=== PATIENT | female | born 1985 | race Caucasian/White ===

== ENCOUNTER 2017-07-09 10:58 | Emergency (ER) | payer BC, OTHER ==
[2017-07-09] MEDS ORDERED: ZOFRAN ODT 4 MG PO ONE (11:14)
[2017-07-09] MEDS ORDERED: ZOFRAN ODT 4 MG ONE (11:18)
--- NOTE | 2017-07-09 11:18 | ERPHSYRPT ---
- History of Present Illness Time Seen by Provider: 07/09/17 11:11 Source: patient Exam Limitations: no limitations Patient Subjective Stated Complaint: pt co migraine headache for 4 days now with vomiting for last 48 hours,unable to keep pain meds down Triage Nursing Assessment: pt alert in no distress , walked in ,resp easy, skin w/d. 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 No fevers. Patient states that she has pain medications at home but is unable to keep these down. Past medical history includes migraines, anxiety, hellp syndrome Past surgical history includes , tubal ligation, tonsillectomy, adenoidectomy Timing/Duration: today Quality: aching Head Pain Location: frontal Severity of Pain-Max: moderate Severity of Pain-Current: moderate Recent Head Trauma: occasional headaches Modifying Factors: Improves With: exposure to light. Worsens With: immobilization, medication, movement, rest, noise, position Associated Symptoms: nausea/vomiting, sensitive to light, No confusion, No dizziness, No fatigue, No facial pain, No fever/chills, No flushing, No light- headedness, No loss of consciousness, No nasal congestion, No nasal drainage, No neck pain, No numbness in legs/feet, No rash, No sweating, No scotoma, No seizures, No sinus infection, No speech problems, No stiff neck, No trouble walking, No vision changes, No visual disturbance, No weakness Previous symptoms: same symptoms as today Allergies/Adverse Reactions: promethazine HCl [From Phenergan] Allergy (Intermediate, Verified 07/09/17 11:09 ) Itching patient itching, flushed, red splotches all over face and body Home Medications: No Home Meds 02/04/12 [History] Hx Tetanus, Diphtheria Vaccination/Date Given: Yes Hx Influenza Vaccination/Date Given: No Hx Pneumococcal Vaccination/Date Given: No Immunizations Up to Date: Yes - Review of Systems Constitutional: No Fever, No Chills Eyes: Photophobia, No Discharge, No Eye Pain, No Eye Redness Ears, Nose, & Throat: No Symptoms, No Ear Pain, No Ear Discharge, No Hearing Changes, No Tinnitus, No Nose Pain, No Nose Congestion, No Nose Discharge, No Sinus Drainage Respiratory: No Cough, No Dyspnea Cardiac: No Chest Pain, No Edema, No Syncope Abdominal/Gastrointestinal: Nausea, Vomiting, No Abdominal Pain, No Diarrhea Genitourinary Symptoms: No Dysuria Musculoskeletal: No Back Pain, No Neck Pain Skin: No Rash Neurological: Headache, No Dizziness, No Focal Weakness, No Gait Changes, No Irritability, No Lethargy, No Paralysis, No Parasthesia, No Seizure, No Sensory Changes, No Speech Changes, No Tics, No Tremors, No Vertigo Psychological: No Symptoms Endocrine: No Symptoms All Other Systems: Reviewed and Negative - Past Medical History Pertinent Past Medical History: Yes Neurological History: Migraines ENT History: No Pertinent History Cardiac History: No Pertinent History Respiratory History: No Pertinent History Endocrine Medical History: No Pertinent History Musculoskeletal History: No Pertinent History GI Medical History: No Pertinent History History: No Pertinent History Psycho-Social History: Anxiety Female Reproductive Disorders: Other Other Medical History: HELLP syndrome - Past Surgical History Past Surgical History: Yes Neuro Surgical History: No Pertinent History Cardiac: No Pertinent History Respiratory: No Pertinent History Gastrointestinal: No Pertinent History Genitourinary: No Pertinent History Musculoskeletal: No Pertinent History Female Surgical History: Section, Tubal Ligation Other Surgical History: tonsillectomy, adenoidectomy - Social History Smoking Status: Current every day smoker Exposure to second hand smoke: Yes Drug Use: none Patient Lives Alone: No - Female History Hx Last Menstrual Period: dec Hx Now: No - Nursing Vital Signs Nursing Vital Signs: Initial Vital Signs Temperature 97.3 F 07/09/17 11:05 Pulse Rate 85 07/09/17 11:05 Respiratory Rate 16 07/09/17 11:05 Blood Pressure 124/72 07/09/17 11:05 O2 Sat by Pulse Oximetry 96 07/09/17 11:05 Pain Scale Pain Intensity 8 - Physical Exam General Appearance: moderate distress, alert Eye Exam: PERRL/EOMI, eyes nml inspection, photophobia, other (fundi are unremarkable) Ears, Nose, Throat Exam: normal ENT inspection, TMs normal, pharynx normal, moist mucous membranes Neck Exam: normal inspection, supple, full range of motion, No meningismus Respiratory Exam: normal breath sounds, lungs clear Cardiovascular Exam: regular rate/rhythm, normal heart sounds Gastrointestinal/Abdominal Exam: soft, No tenderness, No distention Back Exam: normal inspection, normal range of motion Extremity Exam: normal inspection, normal range of motion Mental Status Exam: alert, oriented x 3, 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 Exam: normal speech, PERRL, No facial droop Coordination/Gait Exam: normal cerebellar function Motor/Sensory Exam: no motor deficit, no sensory deficit, no pronator drift, No pronator drift (R), No pronator drift (L), No sensory deficit, No weak motor strength RUE, No weak motor strength LUE, No weak motor strength RLE, No weak motor strength LLE DTR Exam: ankle (R): 2+, ankle (L): 2+ Skin Exam: normal color, warm, dry, No rash SpO2 Interpretation: normal (96%) SpO2: 96 Oxygen Delivery: Room Air Ordered Tests: Medication Summary Generic Name Dose Route Start Last Admin Trade Name Freq PRN Reason Stop Dose Admin Sodium Chloride 1,000 mls @ 999 mls/hr 07/09/17 11:35 07/09/17 11:45 Sodium Chloride 0.9% 1000 Ml IV 07/09/17 12:35 999 mls/hr .Q1H1M STA Administration Discontinued Medications Generic Name Dose Route Start Last Admin Trade Name Freq PRN Reason Stop Dose Admin Sodium Chloride Confirm 07/09/17 11:43 Sodium Chloride 0.9% 1000 Ml Administered 07/09/17 11:44 Dose 1,000 mls @ ud .ROUTE .STK-MED ONE Ondansetron HCl 4 mg 07/09/17 11:14 07/09/17 11:19 Zofran Odt 4 Mg PO 07/09/17 11:15 4 mg STAT ONE Administration Ondansetron HCl Confirm 07/09/17 11:18 Zofran Odt 4 Mg Administered 07/09/17 11:19 Dose 4 mg .ROUTE .STK-MED ONE - Progress Progress: improved Air Movement: fair Progress Note: 07/09/17 11:32 31-year-old white female states she has had a headache for 3 days patient with history of migraines patient states she cannot keep her pain meds down. Patient does not want pain medications at this time she states she just wants something to make it so she doesn't vomit. I have given the patient Zofran. 07/09/17 12:22 Patient states she is feeling better and wants to go home Does not want any pain medications here States she will take Aleve at home. Will write for Zofran. - Departure Time of Disposition: 12:22 Departure Disposition: Home Clinical Impression: Migraine Qualifiers: Migraine type: unspecified Status migrainosus presence: without status migrainosus Intractability: not intractable Qualified Code(s): G43.909 - Migraine, unspecified, not intractable, without status migrainosus Nausea and vomiting Qualifiers: Vomiting type: unspecified Vomiting Intractability: non-intractable Qualified Code(s): R11.2 - Nausea with vomiting, unspecified Condition: Fair Critical Care Time: No Referrals: ERIK LINDQUIST [Primary Care Provider] - Instructions: Headache Additional Instructions: Return home. Plenty of fluids clear fluids only 24-48 hours if nausea vomiting. Zofran 4 mg orally every 4-6 hours as needed for nausea and vomiting. OTC Aleve as needed for headache. Follow-up with your family doctor if symptoms recurrent. Return for acute distress or for severe symptoms. Prescriptions: Ondansetron [Zofran Odt] 4 mg PO Q4-6HPRN PRN #10 tab.rapdis PRN Reason: nausea and vomiting
[2017-07-09] MEDS ORDERED: Sodium Chloride 0.9% 1000 ML 1,000 ML IV STA (11:35)
[2017-07-09] MEDS ORDERED: Sodium Chloride 0.9% 1000 ML 1,000 ML ONE (11:43)
[2017-07-09 12:36] VITALS: BP 134/74; PULSE 74; O2SAT 98
== END 2017-07-09 12:38 | disposition home or self-care (01) ==
LOC: ED 10:58
DX: G43.909 Migraine, unspecified, not intractable, without status migrainosus (principal); R11.2 Nausea with vomiting, unspecified; R51 Headache
CPT/HCPCS: 36000; 96360; 99284; Q0162

== ENCOUNTER 2018-10-30 06:17 | Day surgery (SDC) | payer OTHER ==
[2012-07-23 09:13] VITALS: BP 112/68
[2018-10-30] MEDS ORDERED: DIPRIVAN 200 MG/20 ML IV ONE (06:18)
[2018-10-30] MEDS ORDERED: Ketamine HCl 50 MG/ML IJ ONE (06:18)
[2018-10-30] MEDS ORDERED: Lactated Ringers 1,000 ML IV SCH (06:30)
[2018-10-30] MEDS ORDERED: Lactated Ringers 1,000 ML IV ONE (07:36)
[2018-10-30 09:00] VITALS: O2SAT 99
[2018-10-30 09:28] VITALS: BP 127/59; PULSE 77
--- NOTE | 2018-10-30 09:46 | OP ---
SURGERY DATE/TIME: 10/30/2018 0725 PREOPERATIVE DIAGNOSIS: Rectal bleeding. History of colon polyps. POSTOPERATIVE DIAGNOSIS: Colitis. PROCEDURE: Colonoscopy with cold forceps biopsy. SURGEON: Dr. Scott. ANESTHESIA: MAC. Medications given by anesthesia department. HISTORY: The patient is a 32 year-old white female presenting now for colonoscopic evaluation. She reports she has been having intermittent rectal bleeding which she attributes to hemorrhoids. However on examination the patient had no evidence of hemorrhoids whatsoever internal or external. The patient was felt the need to have endoscopic evaluation. She did also have colon polyps removed ten years ago. The patient was described the risks of the procedure including the risk of perforation, phlebitis, untoward reaction to medication, bleeding and missed lesions. The patient verbalized her understanding and desired to have the procedure performed. DESCRIPTION OF PROCEDURE: The patient was given the medications by the anesthesia department. She had continuous pulse oximetry, ECG monitoring, intermittent blood pressure monitoring and tidal CO2 monitoring during the examination. She was placed in the left lateral decubitus position. A digital rectal examination was performed and revealed normal anal sphincter tone and no masses. There was no bleeding present. The flexible Olympus pediatric colonoscope was used to intubate the rectum. A view of the colon was developed sequentially to the cecum including approximately 20 cm into the terminal ileum. Upon insertion and withdrawal, including a retroflex view in the rectum, there appeared to be a loss of normal vascular markings in the sigmoid to descending colon. There were no erosions or ulcerations. However, no bleeding. Biopsies were obtained in the terminal ileum and from the segment of colon which appeared to be abnormal in regards to increase in spasm and the aforementioned absence of vascular markings. We performed retroflex view in the rectum again confirming the absence of hemorrhoids. The scope was removed from the patient who tolerated the procedure well and was sent back to OP recovery in good condition. The prep was noted to be good.
== END 2018-10-30 09:32 | disposition home or self-care (01) ==
LOC: SDC 06:17
PROVIDERS: ATTEND Family Medicine
DX: K52.9 Noninfective gastroenteritis and colitis, unspecified (principal); K62.5 Hemorrhage of anus and rectum; Z86.010 Personal history of colon polyps; R11.0 Nausea; H53.8 Other visual disturbances
CPT/HCPCS: 82962; 84703; 88305; J2704

== ENCOUNTER 2018-10-30 20:11 | Observation (INO) | payer OTHER ==
[2018-10-30] MEDS ORDERED: Sodium Chloride 0.9% 1000 ML 1,000 ML IV STA (20:47)
[2018-10-30] MEDS ORDERED: TORAdol 30 mg Injection IV ONE (20:48)
[2018-10-30] MEDS ORDERED: BENADRYL 50 MG/ML IV ONE (20:48)
[2018-10-30] MEDS ORDERED: Reglan 10 MG/2 ML IV ONE (20:49)
--- NOTE | 2018-10-30 20:55 | ERPHSYRPT ---
- History of Present Illness Time Seen by Provider: 10/30/18 20:37 Source: patient Exam Limitations: no limitations Patient Subjective Stated Complaint: vomiting Triage Nursing Assessment: Patient brought back to ER via w/c and transferred to bed with assist of 1. Patient states she had a colonoscopy this am by Dr. Scott at 0730. Patient states she has been sick since she got home. Patient states she has been dizzy, vomiting and having a headache 10/10. Patient not able to keep any fluids or food down. Patient states she has "blacked out" three times. Patient's abdomen soft and round with BS X 4. Physician History: Pt underwent colonoscopy this morning here at 07:30 AM. She started c/o blurred vision, headaches, vomiting few hours later, as soon as arrived home. She has vomited several times, and passed out x 3 for few seconds according to her father. She denies fever, chills, no focal weakness, slurred speech, visual loss ,abdominal or chest [pain, SOB, other complaints. Timing/Duration: hour(s) (10), intermittent Quality: sharpness, throbbing Head Pain Location: frontal, temporal (left) Severity of Pain-Max: severe Severity of Pain-Current: severe Recent Head Trauma: no recent headache/trauma, frequent headaches Modifying Factors: Improves With: exposure to light Associated Symptoms: dizziness, loss of consciousness, nausea/vomiting, sensitive to light Previous symptoms: same symptoms as today Home Medications: Divalproex Sodium [Depakote ER] 1,000 mg PO DAILY 10/25/18 [History] Ondansetron [Zofran Odt] 8 mg PO Q4-6HPRN PRN 10/25/18 [History] Sumatriptan [Imitrex] 5 mg NS DAILY PRN 10/25/18 [History] Tizanidine HCl 4 mg [Zanaflex 4 MG] 8 mg PO HS PRN 10/25/18 [History] Topiramate [Topamax] 100 mg PO DAILY 10/25/18 [History] Rizatriptan Benzoate [Maxalt] 10 mg PO Q6-8HPRN PRN 10/30/18 [History] Hx Tetanus, Diphtheria Vaccination/Date Given: Yes Hx Influenza Vaccination/Date Given: No Hx Pneumococcal Vaccination/Date Given: No - Review of Systems Constitutional: No Symptoms Eyes: Vision Changes Ears, Nose, & Throat: No Symptoms Respiratory: No Symptoms Cardiac: No Symptoms Abdominal/Gastrointestinal: Nausea, Vomiting, No Abdominal Pain, No Hematemesis Genitourinary Symptoms: No Symptoms Musculoskeletal: No Symptoms Skin: No Symptoms Neurological: Dizziness, Headache, Vertigo All Other Systems: Reviewed and Negative - Past Medical History Pertinent Past Medical History: Yes Neurological History: Migraines, Seizures ENT History: No Pertinent History Cardiac History: No Pertinent History Respiratory History: Other Endocrine Medical History: Hypoglycemia Musculoskeletal History: Other GI Medical History: GERD, Hemorrhoids, Ulcer History: No Pertinent History Psycho-Social History: Anxiety Female Reproductive Disorders: Other Other Medical History: spots in her lungs were found during CT scan. September 2017 and will re scan in one year. Has not. - Past Surgical History Past Surgical History: Yes Neuro Surgical History: No Pertinent History Cardiac: No Pertinent History Respiratory: No Pertinent History Gastrointestinal: No Pertinent History Genitourinary: No Pertinent History Musculoskeletal: No Pertinent History Female Surgical History: Section, Tubal Ligation Other Surgical History: tonsillectomy, adenoidectomy deviated septum repair, tubes in ears - Social History Smoking Status: Former smoker How long have you smoked: 22 years Exposure to second hand smoke: No Drug Use: none Patient Lives Alone: No - Female History Hx Last Menstrual Period: 6 days ago Hx Now: No - Nursing Vital Signs Nursing Vital Signs: Initial Vital Signs Temperature 98.5 F 10/30/18 20:16 Pulse Rate 88 10/30/18 20:16 Respiratory Rate 18 10/30/18 20:16 Blood Pressure 122/62 10/30/18 20:16 O2 Sat by Pulse Oximetry 96 10/30/18 20:16 Pain Scale Pain Intensity 3 - Physical Exam General Appearance: no apparent distress Eye Exam: PERRL/EOMI, eyes nml inspection Ears, Nose, Throat Exam: normal ENT inspection, TMs normal, pharynx normal, moist mucous membranes Neck Exam: normal inspection, non-tender, supple, No carotid bruit, No JVD Respiratory Exam: normal breath sounds, lungs clear, airway intact, No chest tenderness Cardiovascular Exam: regular rate/rhythm, normal heart sounds, normal peripheral pulses, capillary refill <2 sec, No murmur Gastrointestinal/Abdominal Exam: soft, normal bowel sounds, No tenderness, No distention, No mass, No guarding, No ecchymosis, No pulsatile mass, No rebound, No hernia, No organomegaly Back Exam: normal inspection, No CVA tenderness, No vertebral tenderness Extremity Exam: normal inspection Mental Status Exam: alert, oriented x 3, 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 Exam: normal speech, PERRL, No facial droop Coordination/Gait Exam: normal cerebellar function Motor/Sensory Exam: no motor deficit, no sensory deficit DTR Exam: bicep (R): 2+, bicep (L): 2+, knee (R): 2+, knee (L): 2+, ankle (R): 2 +, ankle (L): 2+ Skin Exam: normal color, warm, dry, No rash Lymphatic Exam: No adenopathy SpO2 Interpretation: normal SpO2: 96 O2 Delivery: Room Air - Course Nursing assessment & vital signs reviewed: Yes EKG Interpreted by Me: RATE (81/min), NORMAL AXIS, NORMAL INTERVALS, NORMAL QRS , NORMAL ST-T - CT Exams Head CT Interpretation: Negative, Tele-radiologist Report Ordered Tests: Active Orders 24 hr Category Date Time Status EKG-ER Only STAT Care 10/30/18 20:49 Active IV Insertion STAT Care 10/30/18 20:47 Active HEAD WITHOUT CONTRAST [CT] Stat Exams 10/30/18 20:47 Taken CBC W DIFF Stat Lab 10/30/18 20:47 Completed CMP Stat Lab 10/30/18 20:47 Completed Erythrocyte Sedimentation Rate Stat Lab 10/30/18 20:48 Completed MAGNESIUM Stat Lab 10/30/18 20:47 Completed PROTIME WITH INR Stat Lab 10/30/18 20:48 Completed TROPONIN Q3H Lab 10/30/18 21:00 Completed TROPONIN Q3H Lab 10/31/18 00:00 Ordered TROPONIN Q3H Lab 10/31/18 03:00 Ordered TROPONIN Q3H Lab 10/31/18 06:00 Ordered TROPONIN Q3H Lab 10/31/18 09:00 Ordered UA W/RFX UR CULTURE Stat Lab 10/30/18 20:47 Completed Urine Triage Profile Stat Lab 10/30/18 20:47 Ordered Medication Summary Discontinued Medications Generic Name Dose Route Start Last Admin Trade Name Freq PRN Reason Stop Dose Admin Diphenhydramine HCl 25 mg 10/30/18 20:48 10/30/18 21:16 Benadryl 50 Mg/Ml IV 10/30/18 20:49 25 mg STAT ONE Administration Diphenhydramine HCl Confirm 10/30/18 21:11 Benadryl 50 Mg/Ml Administered 10/30/18 21:12 Dose 50 mg .ROUTE .STK-MED ONE Fentanyl Citrate 75 mcg 10/30/18 22:58 10/30/18 23:03 Sublimaze 100 Mcg/2 Ml IV 10/30/18 22:59 75 mcg STAT ONE Administration Fentanyl Citrate Confirm 10/30/18 23:00 Sublimaze 100 Mcg/2 Ml Administered 10/30/18 23:01 Dose 100 mcg .ROUTE .STK-MED ONE Sodium Chloride 1,000 mls @ 999 mls/hr 10/30/18 20:47 10/30/18 22:17 Sodium Chloride 0.9% 1000 Ml IV 10/30/18 21:47 Infused .Q1H1M STA Infusion Sodium Chloride Confirm 10/30/18 21:12 Sodium Chloride 0.9% 1000 Ml Administered 10/30/18 21:13 Dose 1,000 mls @ ud .ROUTE .STK-MED ONE Ketorolac Tromethamine 30 mg 10/30/18 20:48 10/30/18 21:17 Toradol 30 Mg Injection IV 10/30/18 20:49 30 mg STAT ONE Administration Ketorolac Tromethamine Confirm 10/30/18 21:11 Toradol 30 Mg Injection Administered 10/30/18 21:12 Dose 30 mg .ROUTE .STK-MED ONE Meclizine HCl 25 mg 10/30/18 23:55 10/31/18 00:04 Antivert 25 Mg PO 10/30/18 23:56 25 mg STAT ONE Administration Meclizine HCl Confirm 10/31/18 00:03 Antivert 25 Mg Administered 10/31/18 00:04 Dose 25 mg .ROUTE .STK-MED ONE Metoclopramide HCl 10 mg 10/30/18 20:49 10/30/18 21:17 Reglan 10 Mg/2 Ml IV 10/30/18 20:50 10 mg STAT ONE Administration Metoclopramide HCl Confirm 10/30/18 21:12 Reglan 10 Mg/2 Ml Administered 10/30/18 21:13 Dose 10 mg .ROUTE .STK-MED ONE Lab/Rad Data: Laboratory Result Diagrams 10/30/18 20:47 10/30/18 20:47 Laboratory Results 10/30/18 10/30/18 10/30/18 Range/Units 21:00 20:48 20:48 WBC (4.0-10.5) K/mm3 RBC (4.1-5.4) M/mm3 Hgb (12.0-16.0) gm/dl Hct (35-47) % MCV (78-100) fl MCH (26-32) pg MCHC (32-36) g/dl RDW (11.5-14.0) % Plt Count (150-450) K/mm3 MPV (6-9.5) fl Gran % (36.0-66.0) % Eos # (Auto) (0-0.5) Absolute Lymphs (auto) (1.0-4.6) Absolute Monos (auto) (0.0-1.3) Lymphocytes % (24.0-44.0) % Monocytes % (0.0-12.0) % Eosinophils % (0.00-5.0) % Basophils % (0.0-0.4) % Absolute Granulocytes (1.4-6.9) Basophils # (0-0.4) ESR 11 (0-20) mm/hr PT 12.7 H (9.95-12.35) SECONDS INR 1.09 (0.8-3.0) Sodium (137-145) mmol/L Potassium (3.5-5.1) mmol/L Chloride (98-107) mmol/L Carbon Dioxide (22-30) mmol/L Anion Gap (5-15) MEQ/L BUN (7-17) mg/dL Creatinine (0.52-1.04) mg/dL Estimated GFR ML/MIN Glucose (74-106) mg/dL Calcium (8.4-10.2) mg/dL Magnesium (1.6-2.3) mg/dL Total Bilirubin (0.2-1.3) mg/dL AST (14-36) U/L ALT (0-35) U/L Alkaline Phosphatase (38-126) U/L Troponin I < 0.012 (0.000-0.034) ng/mL Serum Total Protein (6.3-8.2) g/dL Albumin (3.5-5.0) g/dL Urine Color (YELLOW) Urine Appearance (CLEAR) Urine pH (5-6) Ur Specific [place] (1.005-1.025) Urine Protein (Negative) Urine Ketones (NEGATIVE) Urine Blood (0-5) Jesus/ul Urine Nitrite (NEGATIVE) Urine Bilirubin (NEGATIVE) Urine Urobilinogen (0-1) mg/dL Ur Leukocyte Esterase (NEGATIVE) Urine WBC (Auto) (0-5) /HPF Urine RBC (Auto) (0-2) /HPF U Epithel Cells (Auto) (FEW) /HPF Urine Bacteria (Auto) (NEGATIVE) /HPF Urine Mucus (Auto) (NEGATIVE) /HPF Urine Culture Reflexed (NO) Urine Glucose (NEGATIVE) mg/dL 10/30/18 10/30/18 10/30/18 Range/Units 20:47 20:47 20:47 WBC 7.4 (4.0-10.5) K/mm3 RBC 4.26 (4.1-5.4) M/mm3 Hgb 12.3 (12.0-16.0) gm/dl Hct 37.8 (35-47) % MCV 88.7 (78-100) fl MCH 28.9 (26-32) pg MCHC 32.5 (32-36) g/dl RDW 12.4 (11.5-14.0) % Plt Count 238 (150-450) K/mm3 MPV 10.8 H (6-9.5) fl Gran % 82.8 H (36.0-66.0) % Eos # (Auto) 0.02 (0-0.5) Absolute Lymphs (auto) 0.94 L (1.0-4.6) Absolute Monos (auto) 0.30 (0.0-1.3) Lymphocytes % 12.7 L (24.0-44.0) % Monocytes % 4.1 (0.0-12.0) % Eosinophils % 0.3 (0.00-5.0) % Basophils % 0.1 (0.0-0.4) % Absolute Granulocytes 6.11 (1.4-6.9) Basophils # 0.01 (0-0.4) ESR (0-20) mm/hr PT (9.95-12.35) SECONDS INR (0.8-3.0) Sodium 140 (137-145) mmol/L Potassium 4.0 (3.5-5.1) mmol/L Chloride 106 (98-107) mmol/L Carbon Dioxide 25 (22-30) mmol/L Anion Gap 13.0 (5-15) MEQ/L BUN 8 (7-17) mg/dL Creatinine 0.57 (0.52-1.04) mg/dL Estimated GFR > 60.0 ML/MIN Glucose 108 H (74-106) mg/dL Calcium 9.3 (8.4-10.2) mg/dL Magnesium 2.0 (1.6-2.3) mg/dL Total Bilirubin 0.90 (0.2-1.3) mg/dL AST 29 (14-36) U/L ALT 34 (0-35) U/L Alkaline Phosphatase 77 (38-126) U/L Troponin I (0.000-0.034) ng/mL Serum Total Protein 7.4 (6.3-8.2) g/dL Albumin 4.3 (3.5-5.0) g/dL Urine Color YELLOW (YELLOW) Urine Appearance CLOUDY (CLEAR) Urine pH 8.0 (5-6) Ur Specific [place] 1.013 (1.005-1.025) Urine Protein NEGATIVE (Negative) Urine Ketones SMALL (NEGATIVE) Urine Blood NEGATIVE (0-5) Jesus/ul Urine Nitrite NEGATIVE (NEGATIVE) Urine Bilirubin NEGATIVE (NEGATIVE) Urine Urobilinogen NEGATIVE (0-1) mg/dL Ur Leukocyte Esterase TRACE (NEGATIVE) Urine WBC (Auto) 3-5 (0-5) /HPF Urine RBC (Auto) 3-5 (0-2) /HPF U Epithel Cells (Auto) RARE (FEW) /HPF Urine Bacteria (Auto) RARE (NEGATIVE) /HPF Urine Mucus (Auto) SLIGHT (NEGATIVE) /HPF Urine Culture Reflexed NO (NO) Urine Glucose NEGATIVE (NEGATIVE) mg/dL - Progress Progress: improved Air Movement: good Progress Note: 10/31/18 00:38 Pt was given NS bolus, Toradol, Benadryl, Reglan and Fentanyl iv, improved, she is alert, oriented x4, afebrile. called Dr Scott, discussed our results with him and this patient's current condition, he agreed to admit her for observation. Patient and her father informed and they agreed. Blood Culture(s) Obtained: No Antibiotics given: No Discussed with : Tyler Will see patient in: hospital (observation) Counseled pt/family regarding: lab results, diagnosis, rad results - Departure Departure Disposition: Observation Clinical Impression: Syncope and collapse Headache Qualifiers: Headache type: unspecified Headache chronicity pattern: acute headache Intractability: not intractable Qualified Code(s): R51 - Headache Migraine Qualifiers: Migraine type: with aura Status migrainosus presence: without status migrainosus Intractability: not intractable Qualified Code(s): G43.109 - Migraine with aura, not intractable, without status migrainosus Condition: Stable Critical Care Time: No Referrals: ERIK SCOTT [Primary Care Provider] -
[2018-10-30] MEDS ORDERED: BENADRYL 50 MG/ML ONE (21:11)
[2018-10-30] MEDS ORDERED: TORAdol 30 mg Injection ONE (21:11)
[2018-10-30] MEDS ORDERED: Reglan 10 MG/2 ML ONE (21:12)
[2018-10-30] MEDS ORDERED: Sodium Chloride 0.9% 1000 ML 1,000 ML ONE (21:12)
[2018-10-30 21:53] LABS: BASOPHIL % 0.1 % (0.0-0.4); Basophil (Absolute #) 0.01 (0-0.4); Eosinophil % 0.3 % (0.00-5.0); Eosinophil (Absolute #) 0.02 (0-0.5); Granulocyte Absolute (ANC) 6.11 (1.4-6.9); Granulocytes % 82.8 % (36.0-66.0); Hematocrit 37.8 % (35-47); Hemoglobin 12.3 gm/dl (12.0-16.0); Lymphocyte (Absolute #) 0.94 (1.0-4.6); Lymphocytes % 12.7 % (24.0-44.0); Mean Cell Volume 88.7 fl (78-100); Mean Corpuscular Hemoglobin 28.9 pg (26-32); Mean Corpuscular Hgb Concent. 32.5 g/dl (32-36); Mean Platelet Volume 10.8 fl (6-9.5); Monocytes % 4.1 % (0.0-12.0); Platelet Count 238 K/mm3 (150-450); Red Blood Count 4.26 M/mm3 (4.1-5.4); Red Cell Distribution Width 12.4 % (11.5-14.0); White Blood Count 7.4 K/mm3 (4.0-10.5)
[2018-10-30 22:08] LABS: INR 1.09 (0.8-3.0); PROTIME 12.7 SECONDS (9.95-12.35)
[2018-10-30 22:13] LABS: ALBUMIN 4.3 g/dL (3.5-5.0); ALKALINE PHOSPHATASE 77 U/L (38-126); BLOOD UREA NITROGEN 8 mg/dL (7-17); CHLORIDE 106 mmol/L (98-107); Calcium 9.3 mg/dL (8.4-10.2); Carbon Dioxide 25 mmol/L (22-30); Creatinine 1 0.57 mg/dL (0.52-1.04); Glucose 108 mg/dL (74-106); SGOT/AST 29 U/L (14-36); SGPT/ALT 34 U/L (0-35); SODIUM 140 mmol/L (137-145); Total Protein 7.4 g/dL (6.3-8.2)
[2018-10-30] MEDS ORDERED: SUBLIMAZE 100 MCG/2 ML IV ONE (22:58)
[2018-10-30] MEDS ORDERED: SUBLIMAZE 100 MCG/2 ML ONE (23:00)
[2018-10-30] MEDS ORDERED: ANTIVERT 25 MG PO ONE (23:55)
[2018-10-31] MEDS ORDERED: ANTIVERT 25 MG ONE (00:03)
[2018-10-31 00:32] LABS: Appearance CLOUDY (CLEAR); Bacteria RARE /HPF (NEGATIVE); Bilirubin NEGATIVE (NEGATIVE); Blood NEGATIVE Ery/ul (0-5); Epithelial Cells RARE /HPF (FEW); Glucose NEGATIVE (NEGATIVE); Ketones SMALL (NEGATIVE); Leukocyte Esterase TRACE (NEGATIVE); Mucus SLIGHT /HPF (NEGATIVE); Nitrite NEGATIVE (NEGATIVE); Protein,Urine Dip NEGATIVE (Negative); Specific Gravity 1.013 (1.005-1.025); Urobilinogen NEGATIVE mg/dL (0-1)
[2018-10-31 00:39] LABS: Amphetamine,Urine NEGATIVE (NEGATIVE); Barbiturate,Urine NEGATIVE (NEGATIVE); Benzodiazepine,Urine NEGATIVE (NEGATIVE); Cocaine,Urine NEGATIVE (NEGATIVE); Methadone,Urine NEGATIVE (NEGATIVE); Opiate,Urine NEGATIVE (NEGATIVE); PCP,Urine NEGATIVE (NEGATIVE); THC,Urine NEGATIVE (NEGATIVE)
[2018-10-31] MEDS ORDERED: MORPHINE SULFATE 4 MG INJ IV PRN (00:41)
[2018-10-31] MEDS ORDERED: Sodium Chloride 0.9% 1000 ML 1,000 ML IV SCH (00:45)
[2018-10-31] MEDS: Zofran 4 MG/2 ML VIAL IV PRN ×3 (02:07→19:49)
[2018-10-31 04:10] LABS: ANION GAP 10.9 MEQ/L (5-15); BLOOD UREA NITROGEN 8 mg/dL (7-17); CHLORIDE 107 mmol/L (98-107); Calcium 8.9 mg/dL (8.4-10.2); Carbon Dioxide 26 mmol/L (22-30); Creatinine 1 0.57 mg/dL (0.52-1.04); Glucose 85 mg/dL (74-106); Potassium 3.9 mmol/L (3.5-5.1); SODIUM 140 mmol/L (137-145)
[2018-10-31 04:12] LABS: BASOPHIL % 0.3 % (0.0-0.4); Basophil (Absolute #) 0.02 (0-0.4); Eosinophil % 0.6 % (0.00-5.0); Eosinophil (Absolute #) 0.04 (0-0.5); Granulocyte Absolute (ANC) 4.41 (1.4-6.9); Granulocytes % 64.3 % (36.0-66.0); Hematocrit 36.5 % (35-47); Hemoglobin 11.6 gm/dl (12.0-16.0); Lymphocyte (Absolute #) 1.89 (1.0-4.6); Lymphocytes % 27.6 % (24.0-44.0); Mean Cell Volume 89.2 fl (78-100); Mean Corpuscular Hgb Concent. 31.8 g/dl (32-36); Monocyte (Absolute #) 0.49 (0.0-1.3); Monocytes % 7.2 % (0.0-12.0); Platelet Count 232 K/mm3 (150-450); Red Blood Count 4.09 M/mm3 (4.1-5.4); Red Cell Distribution Width 12.5 % (11.5-14.0); White Blood Count 6.9 K/mm3 (4.0-10.5)
[2018-10-31 04:18] LABS: Mean Corpuscular Hemoglobin 28.3 pg (26-32)
--- NOTE | 2018-10-31 08:43 | XRAY ---
Indication: Headache, nausea, vomiting, and blurred vision. Multiple contiguous axial images obtained through the head without contrast. Comparison: November 24, 2012. Again normal appearing brain parenchyma, ventricles, and bony calvarium. Visualized paranasal sinuses and mastoid air cells are clear. Impression: Normal CT head without contrast exam. CT DI 67.22
[2018-10-31] MEDS ORDERED: NON-FORMULARY ITEM (Rizatriptan Benzoate [Maxalt] 10 MG) PO PRN (09:16)
[2018-10-31] MEDS ORDERED: ZOFRAN ODT 4 MG PO PRN (09:16)
[2018-10-31] MEDS ORDERED: SUMATRIPTAN 5 MG NS PRN (09:16)
[2018-10-31] MEDS ORDERED: Zanaflex 4 MG PO PRN (09:16)
[2018-10-31] MEDS ORDERED: MEDICATION INTERVENTION MC SCH ×2 (09:30→09:45)
[2018-10-31] MEDS ORDERED: Depakote EXTENDED RELEASE 250 MG PO SCH (10:00)
[2018-10-31] MEDS ORDERED: DIVALPROEX SODIUM 1000 MG PO SCH (10:00)
[2018-10-31] MEDS ORDERED: TOPIRAMATE 100 MG PO SCH (10:00)
[2018-10-31] MEDS ORDERED: Topamax 100 MG PO SCH (10:00)
[2018-10-31] MEDS: ANTIVERT 25 MG PO SCH ×4 (10:12→21:58)
[2018-10-31] MEDS ORDERED: TYLENOL 325 MG PO PRN (10:21)
[2018-10-31] MEDS: Sodium Chloride 0.9% 1000 ML 1,000 ML IV SCH ×2 (10:49→17:45)
[2018-10-31] MEDS ORDERED: PATIENT OWN MEDICATION PO PRN (14:23)
[2018-11-01] MEDS: Sodium Chloride 0.9% 1000 ML 1,000 ML IV SCH (00:40)
[2018-11-01] MEDS: ANTIVERT 25 MG PO SCH ×2 (02:05→06:01)
[2018-11-01] MEDS: Zofran 4 MG/2 ML VIAL IV PRN (06:00)
[2018-11-01 08:31] VITALS: BP 127/64; PULSE 88; O2SAT 98
== END 2018-11-01 09:07 | disposition home or self-care (01) ==
LOC: ED 20:11 → MED SURG 10-31 01:17
PROVIDERS: ADMIT Family Medicine; ATTEND Family Medicine
DX: G43.909 Migraine, unspecified, not intractable, without status migrainosus (principal); R42 Dizziness and giddiness; Z98.890 Other specified postprocedural states; Z79.899 Other long term (current) drug therapy
CPT/HCPCS: 36000; 36415; 70450; 80048; 80053; 80307; 81001; 83735; 84484; 85025; 85610; 85652; 93005; 93268; 96360; 96374; 96375; 99285; G0378; Q3014; J1200; J1885; J2270; J2405; J3010; A9270-GY